=== PATIENT | female | born 1960 | race Caucasian/White ===

== ENCOUNTER 2018-11-28 16:30 | Emergency (ER) | payer OTHER ==
[2018-11-28] MEDS ORDERED: MORPHINE 4 MG/ML SYR ONE (18:27)
[2018-11-28] MEDS ORDERED: ONDANSETRON 4 MG/2 ML VIAL ONE (18:28)
[2018-11-28] MEDS ORDERED: NA CHLORIDE 0.9% 1,000 ML ONE (18:28)
[2018-11-28 18:33] LABS: Absolute Lymphocytes (CBC) 1.9 K/uL (0.7-4.9); Basophils % 1.1 % (0-1.3); Hematocrit 37.4 % (36.0-45.0); Lymphocytes % 27.1 % (15.3-44.8); RBC Red Blood Cell Count 4.26 M/uL (3.86-4.86)
[2018-11-28 18:56] LABS: Bilirubin Direct 0.1 mg/dL (0-0.2); Bilirubin Total 0.2 mg/dL (0.2-1.0); Potassium 4.1 mmol/L (3.5-5.1); Protein, Total 7.6 g/dL (6.4-8.2)
--- NOTE | 2018-11-28 19:55 | RAD REPORT ---
EXAM DESCRIPTION: CT - Abdomen Pelvis W Contrast - 11/28/2018 7:33 pm CLINICAL HISTORY: Abdominal pain COMPARISON: none. TECHNIQUE: Computed axial tomography of the abdomen pelvis was obtained. 100 cc Isovue-300 was admin istered intravenously. Oral contrast was not requested which limits evaluation of bowel. All CT scans are performed using dose optimization technique as appropriate and may include automated exposure control or mA/KV adjustment according to patient size. FINDINGS: Fatty liver The Spleen, pancreas, and adrenals appear unremarkable. Extrarenal pelves are present. Mild right devon al cortical thinning may be secondary to prior inflammation There is no evidence of diverticulitis. Small umbilical hernia. Hysterectomy The wall of the distal stomach is thickened IMPRESSION: Thickening of the wall of the distal stomach may be secondary to incomplete distention, inflammation or mass.
[2018-11-28 20:25] LABS: Urine Blood NEGATIVE (NEG); Urine Glucose NEGATIVE (NEG); Urine Protein NEGATIVE (NEG); Urine pH 5.5 (5.0-7.0)
--- NOTE | 2018-11-28 20:36 | ER ---
Nurse's Notes [facility] Name: Amy Padilla Age: 58 yrs Sex: Female : 1960 Arrival Date: 11/28/2018 Time: 16:31 Bed 18 Private MD: Diagnosis: Unspecified abdominal pain Presentation: 11/28 17:26 Presenting complaint: Patient states: LUQ abdominal pain, nausea, weakness, dizziness aj1 and shortness of breath for the past week. Denies fever. Denies V/D. Transition of care: patient was not received from another setting of care. Onset of symptoms was 2018. Risk Assessment: Do you want to hurt yourself or someone else? Patient reports no desire to harm self or others. Initial Sepsis Screen: Does the patient meet any 2 criteria? No. Patient's initial sepsis screen is negative. Does the patient have a suspected source of infection? No. Patient's initial sepsis screen is negative. Care prior to arrival: None. 17:26 Method Of Arrival: Ambulatory aj1 17:26 Acuity: KANDIS 3 aj1 Triage Assessment: 17:31 General: Appears in no apparent distress. comfortable, Behavior is calm, cooperative, aj1 appropriate for age. Pain: Complains of pain in left upper quadrant Pain currently is 10 out of 10 on a pain scale. Neuro: Level of Consciousness is awake, alert, obeys commands. Cardiovascular: Patient's skin is warm and dry. Respiratory: Airway is patent Respiratory effort is even, unlabored, Respiratory pattern is regular, symmetrical. GI: Reports upper abdominal pain. Historical: - Allergies: 17:31 Neurontin; aj1 17:31 Mobic; aj1 17:31 Sulfa (Sulfonamide Antibiotics); aj1 17:31 subha; aj1 17:31 sea food; aj1 17:31 Flonase; aj1 - Home Meds: 17:31 levothyroxine oral [Active]; armodafinil oral oral [Active]; Prozac Oral [Active]; aj1 Lunesta oral oral [Active]; - PMHx: 17:31 Hypothyroidism; Fibromyalgia; Anxiety; Depression; aj1 - PSHx: 17:31 Appendectomy; Tonsillectomy; Hysterectomy; carpal tunnel; laproscopic adhesion surgery; aj1 Disc surgery; - Immunization history:: Flu vaccine is not up to date. - Social history:: Smoking status: Patient/guardian denies using tobacco. - Ebola Screening: : Patient denies travel to an Ebola-affected area in the 21 days before illness onset. Screenin:41 Abuse screen: Denies threats or abuse. Denies injuries from another. Nutritional bp screening: No deficits noted. Tuberculosis screening: No symptoms or risk factors identified. Fall Risk None identified. Assessment: 17:40 General: Appears in no apparent distress. comfortable, Behavior is cooperative, bp appropriate for age, anxious. Pain: Complains of pain in left upper quadrant. Neuro: No deficits noted. Cardiovascular: No deficits noted. Respiratory: No deficits noted. GI: Bowel sounds present X 4 quads. Abd is soft X 4 quads. : No signs and/or symptoms were reported regarding the genitourinary system. EENT: No deficits noted. Derm: No deficits noted. Musculoskeletal: No deficits noted. 19:15 Reassessment: Patient appears in no apparent distress at this time. Patient and/or cc3 family updated on plan of care and expected duration. Pain level reassessed. Patient is alert, oriented x 3, equal unlabored respirations, skin warm/dry/pink. Received this female patient from morning shift RN Mukund as a case of abdominal pain, still for CT scan abdomen as endorsed. With IV cannula gauge 20 at the left ACV with ongoing IVF bolus of NS infusing well. Patient states feeling better. Patient states symptoms have improved. General: Appears in no apparent distress. comfortable, Behavior is calm, cooperative, appropriate for age. Pain: Complains of pain in left upper quadrant Pain currently is 8 out of 10 on a pain scale. Quality of pain is described as aching. Neuro: Level of Consciousness is awake, alert, obeys commands, Oriented to person, place, time, situation, Appropriate for age. Cardiovascular: Denies chest pain, Heart tones S1 S2 present Capillary refill < 3 seconds in bilateral fingers Patient's skin is warm and dry. Respiratory: Airway is patent Respiratory effort is even, unlabored, Respiratory pattern is regular, symmetrical. GI: Bowel sounds present X 4 quads. Abd is soft X 4 quads Abdomen is tender to palpation in left upper quadrant. : No signs and/or symptoms were reported regarding the genitourinary system. EENT: No signs and/or symptoms were reported regarding the EENT system. Derm: Skin is intact, is healthy with good turgor, Skin is pink, warm \T\ dry. normal. Musculoskeletal: Circulation, motion, and sensation intact. Range of motion: intact in all extremities. 19:30 Reassessment: Patient taken by certification technician to their department by wheelchair. cc3 19:48 Reassessment: Patient came back from CT scan department, awaiting result. cc3 20:12 Reassessment: Patient appears in no apparent distress at this time. Patient and/or cc3 family updated on plan of care and expected duration. Pain level reassessed. Patient is alert, oriented x 3, equal unlabored respirations, skin warm/dry/pink. 21:00 Reassessment: Patient appears in no apparent distress at this time. Patient and/or cc3 family updated on plan of care and expected duration. Pain level reassessed. Patient is alert, oriented x 3, equal unlabored respirations, skin warm/dry/pink. LUDA Mccormick discharged the patient the home with prescription given. IV cannula removed and patient left ER vitally stable and ambulatory with her son. No valuables left in the patient's room. Patient denies pain at this time. Patient states feeling better. Patient states symptoms have improved. Vital Signs: 17:31 BP 160 / 84; Pulse 74; Resp 18; Temp 97.2; Pulse Ox 98% on R/A; Weight 74.39 kg (R); aj1 Height 5 ft. 3 in. (160.02 cm) (R); Pain 10/10; 18:48 BP 155 / 114; Pulse 71; Resp 16; Pulse Ox 98% ; bp 19:15 BP 140 / 65; Pulse 73; Resp 17 S; Temp 98.1(O); Pulse Ox 99% on R/A; Pain 8/10; cc3 20:38 BP 150 / 76; Pulse 65; Resp 18 S; Pulse Ox 98% on R/A; cc3 17:31 Body Mass Index 29.05 (74.39 kg, 160.02 cm) [facility] ED Course: 16:31 Patient arrived in ED. wh 16:55 Patient's name was called from ER lobby. No response. aj1 17:27 Triage completed. aj1 17:31 Arm band placed on Patient placed in an exam room. aj1 17:35 Rebel Mccormick NP is PHCP. pm1 17:35 Jorge Causey MD is Attending Physician. pm1 17:40 Mukund Green, ELTON is Primary Nurse. bp 17:41 Patient has correct armband on for positive identification. Bed in low position. Call bp light in reach. Side rails up X2. 18:15 Inserted saline lock: 20 gauge in left antecubital area, using aseptic technique. bp 18:17 Radiology exam delayed due to lab results not completed at this time. (BUN/Creatinine). nj 18:18 Urine collected: clean catch specimen, clear. tm3 19:33 CT completed. Patient tolerated procedure well. Patient moved to CT. Patient moved back nh from CT. 19:34 CT Abd/Pelvis - IV Contrast Only In Process Unspecified. EDMS 21:00 No provider procedures requiring assistance completed. IV discontinued, intact, cc3 bleeding controlled, No redness/swelling at site. Pressure dressing applied. Administered Medications: 18:15 Drug: morphine 4 mg Route: IVP; Site: left antecubital; bp 19:20 Follow up: Response: No adverse reaction; Pain is decreased; RASS: Alert and Calm (0) cc3 18:15 Drug: Zofran 4 mg Route: IVP; Site: left antecubital; bp 19:20 Follow up: Response: No adverse reaction; Nausea is decreased cc3 18:15 Drug: NS 0.9% 1000 ml Route: IV; Rate: 1000 ml; Site: left antecubital; bp 19:25 Follow up: Response: No adverse reaction; IV Status: Completed infusion; IV Intake: cc3 1000ml 20:40 Drug: GI Cocktail without - (Maalox Suspension 30 ml, Lidocaine Liquid 2 % 15 cc3 ml) Route: PO; 21:00 Follow up: Response: No adverse reaction; Pain is decreased cc3 Intake: 19:25 IV: 1000ml; Total: 1000ml. cc3 Outcome: 20:34 Discharge ordered by . pm1 21:00 Discharged to home ambulatory, with family. cc3 21:00 Condition: stable 21:00 Discharge instructions given to patient, family, Instructed on discharge instructions, follow up and referral plans. medication usage, Demonstrated understanding of instructions, follow-up care, medications, Prescriptions given X 1. 21:08 Patient left the ED. cc3 Signatures: Dispatcher [employer] Fallon Cummins RN RN aj1 Daquan, Jeff tm3 Rebel Mccormick, MANAGER CARDIAC CATH MANAGER CARDIAC CATH pm1 Armani Baez Winsy wh Peltier, Brian, RN RN bp Kari Irizarry cc3
--- NOTE | 2018-11-28 20:36 | EDPHYS ---
Physician Documentation [facility] Name: Amy Padilla Age: 58 yrs Sex: Female : 1960 Arrival Date: 11/28/2018 Time: 16:31 Bed 18 Private MD: ED Physician Jorge Causey HPI: 11/28 19:12 This 58 yrs old Female presents to ER via Ambulatory with complaints of pm1 Abdominal Pain. 19:12 The patient presents with abdominal pain in the left upper quadrant, abdominal pm1 distention that is diffuse. Onset: The symptoms/episode began/occurred ongoing for multiple months. The symptoms do not radiate. Associated signs and symptoms: Pertinent positives: burning acid taste in throat with eating food. Patient reports pain is worse with eating for the past multiple months. Onset after losing prescription for Dexilant related to insurance denial for PPI, Pertinent negatives: nausea, vomiting, and diarrhea. The symptoms are described as burning. Modifying factors: The symptoms are alleviated by nothing, the symptoms are aggravated by food. Severity of pain: in the emergency department the pain is actually worse. The patient has experienced similar episodes in the past, chronically. The patient has been recently seen by a physician: Dr. Hightower who recommended colonoscopy. Has not done it because she wanted a EGD. Historical: - Allergies: 17:31 Neurontin; aj1 17:31 Mobic; aj1 17:31 Sulfa (Sulfonamide Antibiotics); aj1 17:31 subha; aj1 17:31 sea food; aj1 17:31 Flonase; aj1 - Home Meds: 17:31 levothyroxine oral [Active]; armodafinil oral oral [Active]; Prozac Oral [Active]; aj1 Lunesta oral oral [Active]; - PMHx: 17:31 Hypothyroidism; Fibromyalgia; Anxiety; Depression; aj1 - PSHx: 17:31 Appendectomy; Tonsillectomy; Hysterectomy; carpal tunnel; laproscopic adhesion surgery; aj1 Disc surgery; - Immunization history:: Flu vaccine is not up to date. - Social history:: Smoking status: Patient/guardian denies using tobacco. - Ebola Screening: : Patient denies travel to an Ebola-affected area in the 21 days before illness onset. ROS: 19:12 Constitutional: Negative for fever, chills, and weight loss, Eyes: Negative for injury, pm1 pain, redness, and discharge, ENT: Negative for injury, pain, and discharge, Neck: Negative for injury, pain, and swelling, Cardiovascular: Negative for chest pain, palpitations, and edema, Respiratory: Negative for shortness of breath, cough, wheezing, and pleuritic chest pain. 19:12 Back: Negative for injury and pain, : Negative for injury, bleeding, discharge, and swelling, MS/Extremity: Negative for injury and deformity, Skin: Negative for injury, rash, and discoloration, Neuro: Negative for headache, weakness, numbness, tingling, and seizure. 19:12 Abdomen/GI: Positive for abdominal pain, Negative for nausea, vomiting, and diarrhea. Exam: 19:12 Constitutional: This is a well developed, well nourished patient who is awake, alert, pm1 and in no acute distress. Head/Face: Normocephalic, atraumatic. Eyes: Pupils equal round and reactive to light, extra-ocular motions intact. Lids and lashes normal. Conjunctiva and sclera are non-icteric and not injected. Cornea within normal limits. Periorbital areas with no swelling, redness, or edema. ENT: Nares patent. No nasal discharge, no septal abnormalities noted. Tympanic membranes are normal and external auditory canals are clear. Oropharynx with no redness, swelling, or masses, exudates, or evidence of obstruction, uvula midline. Mucous membranes moist. Neck: Trachea midline, no thyromegaly or masses palpated, and no cervical lymphadenopathy. Supple, full range of motion without nuchal rigidity, or vertebral point tenderness. No Meningismus. Chest/axilla: Normal chest wall appearance and motion. Nontender with no deformity. No lesions are appreciated. Cardiovascular: Regular rate and rhythm with a normal S1 and S2. No gallops, murmurs, or rubs. Normal PMI, no JVD. No pulse deficits. Respiratory: Lungs have equal breath sounds bilaterally, clear to auscultation and percussion. No rales, rhonchi or wheezes noted. No increased work of breathing, no retractions or nasal flaring. 19:12 Back: No spinal tenderness. No costovertebral tenderness. Full range of motion. Skin: Warm, dry with normal turgor. Normal color with no rashes, no lesions, and no evidence of cellulitis. MS/ Extremity: Pulses equal, no cyanosis. Neurovascular intact. Full, normal range of motion. 19:12 Abdomen/GI: Inspection: abdomen appears normal, Bowel sounds: normal, Palpation: abdomen is soft and non-tender, in all quadrants, mass, is not appreciated, rebound tenderness, is not appreciated. 19:12 Neuro: Orientation: is normal, Motor: is normal, moves all fours. Vital Signs: 17:31 BP 160 / 84; Pulse 74; Resp 18; Temp 97.2; Pulse Ox 98% on R/A; Weight 74.39 kg (R); aj1 Height 5 ft. 3 in. (160.02 cm) (R); Pain 10/10; 18:48 BP 155 / 114; Pulse 71; Resp 16; Pulse Ox 98% ; bp 19:15 BP 140 / 65; Pulse 73; Resp 17 S; Temp 98.1(O); Pulse Ox 99% on R/A; Pain 8/10; cc3 20:38 BP 150 / 76; Pulse 65; Resp 18 S; Pulse Ox 98% on R/A; cc3 17:31 Body Mass Index 29.05 (74.39 kg, 160.02 cm) aj1 MDM: 17:46 Patient medically screened. pm1 20:34 Data reviewed: vital signs. Data interpreted: Pulse oximetry: on room air is 99 %. pm1 Interpretation: normal. Counseling: I had a detailed discussion with the patient and/or guardian regarding: the historical points, exam findings, and any diagnostic results supporting the discharge/admit diagnosis, lab results, radiology results, the need for outpatient follow up, to return to the emergency department if symptoms worsen or persist or if there are any questions or concerns that arise at home. 11/28 18:06 Order name: Basic Metabolic Panel; Complete Time: 19:16 pm1 11/28 18:06 Order name: CBC with Diff; Complete Time: 18:53 pm1 11/28 18:06 Order name: Creatinine for Radiology; Complete Time: 19:16 pm1 11/28 18:06 Order name: Hepatic Function; Complete Time: 19:16 pm1 11/28 18:06 Order name: Lipase; Complete Time: 19:16 pm1 11/28 18:25 Order name: Urine Dipstick--Ancillary (enter results); Complete Time: 20:33 gm 11/28 18:06 Order name: IV Saline Lock; Complete Time: 18:45 pm1 11/28 18:06 Order name: Labs collected and sent; Complete Time: 18:45 pm1 11/28 18:06 Order name: CT Abd/Pelvis - IV Contrast Only; Complete Time: 20:33 pm1 11/28 18:06 Order name: Urine Dipstick-Ancillary (obtain specimen); Complete Time: 18:13 pm1 Administered Medications: 18:15 Drug: morphine 4 mg Route: IVP; Site: left antecubital; bp 19:20 Follow up: Response: No adverse reaction; Pain is decreased; RASS: Alert and Calm (0) cc3 18:15 Drug: Zofran 4 mg Route: IVP; Site: left antecubital; bp 19:20 Follow up: Response: No adverse reaction; Nausea is decreased cc3 18:15 Drug: NS 0.9% 1000 ml Route: IV; Rate: 1000 ml; Site: left antecubital; bp 19:25 Follow up: Response: No adverse reaction; IV Status: Completed infusion; IV Intake: cc3 1000ml 20:40 Drug: GI Cocktail without - (Maalox Suspension 30 ml, Lidocaine Liquid 2 % 15 cc3 ml) Route: PO; 21:00 Follow up: Response: No adverse reaction; Pain is decreased cc3 Disposition: 11/29 07:16 Co-signature as Attending Physician, Jorge Causey MD. rn Disposition: 11/28/18 20:34 Discharged to Home. Impression: Unspecified abdominal pain. - Condition is Stable. - Discharge Instructions: Abdominal Pain, Adult, Gastritis, Adult. - Prescriptions for Pepcid 20 mg Oral Tablet - take 1 tablet by ORAL route every 12 hours for 10 days; 20 tablet. - Medication Reconciliation Form, Thank You Letter, Antibiotic Education, Prescription Opioid Use form. - Follow up: Emergency Department; When: As needed; Reason: Worsening of condition. Follow up: Private Physician; When: 2 - 3 days; Reason: Recheck today's complaints, Continuance of care, Re-evaluation by your physician. - Problem is new. - Symptoms have improved. Signatures: Dispatcher MedClarion Psychiatric CenterFallon Cesar RN RN aj1 Jorge Causey MD MD rn Marinas, Patrick, WARP PICKER WARP PICKER pm1 Mukund Green, RN RN Kari Garcia cc3 Corrections: (The following items were deleted from the chart) 11/28 21:08 20:34 11/28/2018 20:34 Discharged to Home. Impression: Unspecified abdominal pain. cc3 Condition is Stable. Forms are Medication Reconciliation Form, Thank You Letter, Antibiotic Education, Prescription Opioid Use. Follow up: Emergency Department; When: As needed; Reason: Worsening of condition. Follow up: Private Physician; When: 2 - 3 days; Reason: Recheck today's complaints, Continuance of care, Re-evaluation by your physician. Problem is new. Symptoms have improved. pm1
[2018-11-28] MEDS ORDERED: MAGNE/ALUM HYDROXD 30 ML UCUP ONE (20:43)
[2018-11-28] MEDS ORDERED: LIDOCAINE VISCOUS 2% SOLN 15 ML UDC ONE (20:43)
[2018-11-28 22:12] VITALS: TEMP 98.1
[2018-11-28 22:13] VITALS: BP 150/76; O2SAT 98
== END 2018-11-28 21:08 | disposition home or self-care (01) ==
LOC: ER 16:30
DX: R10.12 Left upper quadrant pain (principal); E03.9 Hypothyroidism, unspecified; F41.9 Anxiety disorder, unspecified; F32.9 Major depressive disorder, single episode, unspecified
CPT/HCPCS: 85025; 80048; 36415; 80076; 81003; 83690; 74177; Q9967; J7030; J2405; 96361; 96374; 96375; 99284

== ENCOUNTER 2019-10-05 17:09 | Emergency (ER) | payer OTHER ==
--- OUTSIDE RECORDS SUMMARY | 2019-10-05 17:11 | XMS REPORT | Continuity of Care Document ---
:1960 Author Organization [facility] t Address [address] [place] [address] Care Team Providers Name Role Phone Tech, Sleep Lab Attending Clinician Unavailable Only, Test Attending Clinician Unavailable Problems Condition Condition Condition Status Onset Resolution Last Treating Co mments Source Name Details Category Date Date Treatment Clinician Date Sciatica Sciatica Problem [facility] Sciatica, Sciatica, Problem Active [facility] right [facility] side [facility] Right hip Right hip Diagnosis Active [facility] pain pain [facility] Left hip Left hip Diagnosis Active [facility] Allergies, Adverse Reactions, Alerts Allergy Allergy Status Severity Reaction(s) Onset Inactive Treating Comm ents Source Name Type Date Date Clinician Lyrica Adverse Active Info Not [facility] Reaction Available [facility] Gabapent Adverse Active Info Not [facility] Reaction Available [facility] Medications Ordered Filled Start Stop Current Ordering Indication Dosage Frequency Signature Comments Components Source Medication Medication Date Date Medication? Clinician (SIG) Name Name Livalo Livalo Yes Ryan not [facility] defined [facility] Armodafinil Armodafinil Yes Ryan (Schedule [facility] IV Drug) [facility] Fluoxetine Fluoxetine Yes Ryan not [facility] HCl HCl [facility] defined [facility] Eszopiclone Eszopiclone Yes Ryan (Schedule [facility]) [facility] Levothyroxi Levothyroxi Yes Ryan not [facility] ne Sodium ne Sodium [facility] defined [facility] Dexilant Dexilant Yes Ryan not [facility] defined [facility] Procedures This patient has no known procedures. Encounters Start End Encounter Admission Attending Care Care Encounter Source Date/Time Date/Time Type Type Clinicians Facility Department ID 2019-09-13 2019-09-13 Retail Warehouse Associate Tech, [facility] [id number] 13:40:37 13:55:37 Visit Sleep Lab [place] [id number] [place] [id number] [place] [phone] [id number] 2019-09-11 2019-09-11 Laboratory Only, [facility] [id number] 13:42:02 13:53:01 Only Test [place] [id number] [place] [id number] [place] [id number] 2018-06-01 2018-06-01 [facility] [id number] [facility] 14:30:00 14:30:00 t [facility] Results This patient has no known results.
--- OUTSIDE RECORDS SUMMARY | 2019-10-05 17:11 | XMS REPORT | Summary of Care ---
:1960 Author Organization [facility] [[email or web address]] - Health Address [address] [place] [address] Care Team Providers Name Role Phone Alirio Gibson Primary Care Provider Encounter Details Date Type Department Care Team Description 09/11/2019 Orders Only [facility] [[email or web address]] Doctor Unassigned, No [address] [facility] [place] [address] [address] [place] [address] Allergies Active Allergy Reactions Severity Noted Date Comments Fluticasone Propionate Palpitations 05/16/2018 Lemon Anaphylaxis 08/26/2014 Closes throat Meloxicam Shortness of Breath 03/01/2014 Gabapentin Shortness of Breath 08/23/2012 Seafood/Fish Other - See comments 10/24/2012 Rash, t hroat closes Iodine And Iodide Other - See comments 10/24/2012 Ra sh, throat Containing Products closes Sulfamethoxazole Anaphylaxis 04/30/2013 Bactrim documented as of this encounter (statuses as of 09/11/2019) Medications Medication Sig Dispensed Refills Start Date End Date Status Armodafinil (NUVIGIL) Take 0.5 tablets 0 Active 150 mg Tab by mouth every morning. eszopiclone 3 mg tablet Take 3 mg by 2 05/09/2018 Active mouth at bedtime. levothyroxine 75 mcg Take 1 tablet by 30 tablet 5 09/13/2018 Active tabletIndications: mouth every Acquired hypothyroidism morning. pantoprazole 40 mg EC Take 40 mg by 0 01/17/2019 Active tablet mouth every morning. FLUoxetine 20 mg Take 20 mg by 0 01/31/2019 Active capsule mouth daily. FLUoxetine (PROZAC) 40 Take 40 mg by 0 Active mg capsule mouth daily. Crutch MiscIndications: Use as directed 1 Each 0 02/12/2019 Active Acute left ankle pain documented as of this encounter (statuses as of 09/11/2019) Active Problems Problem Noted Date Abnormal SPEP 2018 Overview: Possible hypogammaglobulinemia, further lab tests ordered. GERD (gastroesophageal reflux disease) 05/17/2018 Sigmoid diverticulosis 02/15/2017 Prediabetes 12/01/2016 Hypercholesterolemia 12/01/2016 Fatty liver 11/25/2016 Microscopic hematuria 11/24/2016 Trigger finger of right hand 09/03/2014 Ganglion cyst 09/03/2014 Overweight 05/06/2013 Overview: ICD10 Diagnosis Term Mail Carrier And Clerk Utility Cervical spondylosis without myelopathy 09/06/2012 Other seborrheic keratosis 05/08/2012 Fibromyalgia syndrome Carpal tunnel syndrome Sleep apnea Endometriosis Depression Anxiety Chronic fatigue Hypothyroidism Peripheral neuropathy Trochanteric bursitis documented as of this encounter (statuses as of 09/11/2019) Social History Tobacco Use Types Packs/Day Years Used Date Former Smoker Cigarettes 1 36 Quit: 02/03/20 17 Smokeless Tobacco: Never Used Comments: vaping Alcohol Use Drinks/Week oz/Week Comments No Sex Assigned at Date Recorded Not on file Job Start Date Occupation Industry Not on file Not on file Not on file Travel History Travel Start Travel End No recent travel history available. documented as of this encounter Last Filed Vital Signs Not on filedocumented in this encounter Plan of Treatment Date Type Specialty Care Team Description 09/11/2019 Laboratory Only Clinical Medical Luiz Le MD [address] [place] [address] [address] [place] [address] Arrived Laboratory Only, Adc Test 09/13/2019 Ekg Manager Visit Sleep Disorder Dino Ng, Diagnostic [address] [place] [address] Health Maintenance Due Date Last Done Comments DTaP,Tdap,and Td Vaccines (1 - 1973 Tdap) Depression Screening 1974 COLONOSCOPY 2012 Zoster Recombinant Vaccine 2012 (SHINGRIX) (1 of 2) LUNG CANCER SCREEN: Recommended 2017 for age 55-80 with 30 + pack year history Breast Cancer Screening 12/02/2017 12/02/2016 (MAMMOGRAM) INFLUENZA VACCINE (#1) 2019 HEPATITIS C (HCV) SCREEN Completed 05/01/2007 PNEUMOCOCCAL 0-64 YEARS COMBINED Aged Out No longer eligible based on SERIES patient's age to complete this topic documented as of this encounter Procedures Procedure Name Priority Date/Time Associated Diagnosis Comme nts ASSIGNMENT OF BENEFITS Routine 09/11/2019 1:41 PM CDT documented in this encounter Results Not on filedocumented in this encounter Insurance Payer Benefit Plan / Subscriber ID Effective Dates Phone Addre ss Type Group [facility] xxxxxxxxx 2013-Present Medicaid COMM PLAN - PLUS MANAGED MEDICAID documented as of this encounter Advance Directives Type Date Recorded Patient Apron Operator Explanati on Advance Directives and Living 11/13/2012 8:09 AM Will Power of Prn Occupational Therapist 11/13/2012 8:09 AM
--- OUTSIDE RECORDS SUMMARY | 2019-10-05 17:12 | XMS REPORT | Summary of Care ---
:1960 Author Organization [facility] - [facility] Address [address] [place] [address] Care Team Providers Name Role Phone Alirio Gibson Primary Care Provider Reason for Visit Reason Comments LAB WORK Encounter Details Date Type Department Care Team Description 09/11/2019 Laboratory Only [facility] Luiz Le MD [address] [facility] [address] [place] [address] Unspecified Phlebotomy Only, Adc Test examination (Primary Lab-[place] Dx) [address] [place] [address] Allergies Active Allergy Reactions Severity Noted Date [...] 09/03/2014 Overweight 05/06/2013 Overview: ICD10 Diagnosis Term Tubing Tester Utility Cervical spondylosis without myelopathy 09/06/2012 Other [...] Treatment Date Type Specialty Care Team Description 09/13/2019 Computer Peripheral Equipment Operator Visit Sleep Disorder Dino Ng, Diagnostic [address] [address] 15 [phone] Name Type Priority Associated Diagnoses Order S chedule COVID-19 (PCR MOLECULAR LAB Routine Unspecified exami nation Expected: 09/11/2019, TESTING) Expires: 2020 Health Maintenance Due Date Last Done Comments [...] this topic documented as of this encounter Results Not on filedocumented in this encounter Visit Diagnoses Diagnosis Unspecified examination - Primary documented in this encounter Insurance Payer Benefit Plan / Subscriber ID Effective Dates Phone Addre ss Type Group [facility] STAR xxxxxxxxx 2013-Present Medicaid COMM PLAN - PLUS MANAGED MEDICAID documented as of this encounter Advance Directives Type Date Recorded Patient Basket Hand Braider Explanati on Advance Directives and Living 11/13/2012 8:09 AM Will Power of Mechanical Ordnance Assembler 11/13/2012 8:09 AM
--- OUTSIDE RECORDS SUMMARY | 2019-10-05 17:12 | XMS REPORT | Summary of Care ---
:1960 Author Organization [facility] - [facility] Address [address] [place] [address] Care Team Providers Name Role Phone Alirio Gibson Primary Care Provider Reason for Visit Reason Comments LAB WORK Encounter Details Date Type Department Care Team Description 09/11/2019 Laboratory Only [facility] Luiz Le MD [address] [facility] [address] [place] [address] Unspecified Phlebotomy Only, Adc Test examination (Primary Lab-[place] Dx) [address] [place] [address] Allergies Active Allergy Reactions Severity [...] 09/03/2014 Overweight 05/06/2013 Overview: ICD10 Diagnosis Term Wafer Mounter Utility Cervical spondylosis without myelopathy 09/06/2012 Other [...] Date Type Specialty Care Team Description 09/13/2019 Welder Railcar Mechanic Visit Sleep Disorder Dino Ng, Diagnostic [address] [address] 15 [phone] Name Type Priority Associated Diagnoses Date/Ti me COVID-19 (PCR MOLECULAR LAB Routine Unspecified exami nation 09/11/2019 1:48 PM CDT TESTING) Name Type Priority Associated Diagnoses Order S [...] examination - Primary documented in this encounter Additional Health Concerns Infection Onset Date Last Indicated Resolved Time COVID-19 Rule Out 09/11/2019 09/11/2019 documented as of this encounter Insurance Payer Benefit Plan / Subscriber ID Effective Dates Phone Addre ss Type Group [facility] xxxxxxxxx 2013-Present Medicaid COMM PLAN - PLUS MANAGED MEDICAID documented as of this encounter Advance Directives Type Date Recorded Patient Camp Recreation Specialist Explanati on Advance Directives and Living 11/13/2012 8:09 AM Will Power of Hog Driver 11/13/2012 8:09 AM
--- OUTSIDE RECORDS SUMMARY | 2019-10-05 17:13 | XMS REPORT | Summary of Care ---
:1960 Author Organization [facility] - [facility] Address [address] [place] [address] Care Team Providers Name Role Phone Alirio Gibson Primary Care Provider Reason for Visit Reason Comments LAB WORK Encounter Details Date Type Department Care Team Description 09/11/2019 Laboratory Only [facility] Luiz Le MD [address] [facility] [address] [place] [address] Unspecified Phlebotomy Only, Adc Test examination (Primary Lab-[place] Dx) [address] [place] [address] Allergies Active Allergy Reactions Severity [...] 09/03/2014 Overweight 05/06/2013 Overview: ICD10 Diagnosis Term Senior Php Software Developer Utility Cervical spondylosis without myelopathy 09/06/2012 Other [...] Date Type Specialty Care Team Description 09/13/2019 Loss Prevention Specialist Visit Sleep Disorder Dino Ng, Diagnostic [address] [address] 15 [phone] Name Type Priority Associated Diagnoses Date/Ti me [...] Effective Dates Phone Addre ss Type Group [facility] xxxxxxxxx 2013-Present Medicaid COMM PLAN - PLUS MANAGED MEDICAID documented as of this encounter Advance Directives Type Date Recorded Patient Vegetable Harvest Worker Explanati on Advance Directives and Living 11/13/2012 8:09 AM Will Power of Customer Support Representative 11/13/2012 8:09 AM
--- OUTSIDE RECORDS SUMMARY | 2019-10-05 17:13 | XMS REPORT | Summary of Care ---
:1960 Author Organization [facility] Address [address] [place] [address] Care Team Providers Name Role Phone Alirio Gibson Primary Care Provider Reason for Visit Reason Comments Obstructive Sleep Apnea (Routine) Status Reason Specialty Diagnoses / Referred By Referred To Procedures Contact Contact Closed IM-INTERNAL Diagnoses Obstructive sleep apnea (adult) (pediatric) Snoring HST Covid testing on 09/11/2019 Mally Gibson [facility] MEDICINE / Sleep Procedures [place] SLEEP STUDY, UNATTENDED, SIMUL RECORD HR/O2 SAT/RESP FLOW/RESP EFF SLEEP ASSESSMENT Juanis Johnson [facility] Disorder Diagnostic [address] [place] [address] [place] [phone] Phone: Encounter Details Date Type Department Care Team Description 09/13/2019 Business Account Manager Visit [facility] Sleep Dino Ng bstructive sleep Disorder Center- MD Gwendolyn apnea (adult) [address] (pediatric) [address] [facility] [address] [place] [id number] Allergies Active Allergy Reactions Severity Noted Date Comments Fluticasone Propionate Palpitations 05/16/2018 Lemon Anaphylaxis 08/26/2014 Closes throat Meloxicam Shortness of Breath 03/01/2014 Gabapentin Shortness of Breath 08/23/2012 Seafood/Fish Other - See comments 10/24/2012 Rash, t hroat closes Iodine And Iodide Other - See comments 10/24/2012 Ra sh, throat Containing Products closes Sulfamethoxazole Anaphylaxis 04/30/2013 Bactrim documented as of this encounter (statuses as of 09/17/2019) Medications Medication Sig Dispensed Refills Start Date [...] as of this encounter (statuses as of 09/17/2019) Active Problems Problem Noted Date Abnormal SPEP 2018 Overview: Possible hypogammaglobulinemia, further lab tests ordered. GERD (gastroesophageal reflux disease) 05/17/2018 Sigmoid diverticulosis 02/15/2017 Prediabetes 12/01/2016 Hypercholesterolemia 12/01/2016 Fatty liver 11/25/2016 Microscopic hematuria 11/24/2016 Trigger finger of right hand 09/03/2014 Ganglion cyst 09/03/2014 Overweight 05/06/2013 Overview: ICD10 Diagnosis Term Marketing Producer Utility Cervical spondylosis without myelopathy 09/06/2012 Other seborrheic keratosis 05/08/2012 Fibromyalgia syndrome Carpal tunnel syndrome Sleep apnea Endometriosis Depression Anxiety Chronic fatigue Hypothyroidism Peripheral neuropathy Trochanteric bursitis documented as of this encounter (statuses as of 09/17/2019) Social History Tobacco Use Types Packs/Day Years Used Date Former Smoker Cigarettes 1 36 Quit: 02/03/20 17 Smokeless Tobacco: Never Used Comments: vaping Alcohol Use Drinks/Week oz/Week Comments No Sex Assigned at Date Recorded Not on file Job Start Date Occupation Industry Not on file Not on file Not on file Travel History Travel Start Travel End No recent travel history available. COVID-19 Exposure Response Date Recorded In the last month, have you been in contact with No / Unsure 09/17/2019 12:48 PM CDT someone who was confirmed or suspected to have Coronavirus / COVID-19? documented as of this encounter Last Filed Vital Signs Not on filedocumented in this encounter Plan of Treatment Date Type Specialty Care Team Description 09/24/2019 Appointment Radiology Radiology [address] [place] [address] 09/24/2019 Appointment Radiology Radiology [address] [place] [address] Health Maintenance Due Date Last Done Comments [...] filedocumented in this encounter Visit Diagnoses Diagnosis Obstructive sleep apnea (adult) (pediatr ic) documented in this encounter Insurance Payer Benefit Plan / Subscriber ID Effective Dates Phone Addre ss Type Group [facility] STAR xxxxxxxxx 2013-Present Medicaid COMM PLAN - PLUS MANAGED MEDICAID documented as of this encounter Advance Directives Type Date Recorded Patient Reconditioner Explanati on Advance Directives and Living 11/13/2012 8:09 AM Will Power of Casting Associate 11/13/2012 8:09 AM
--- OUTSIDE RECORDS SUMMARY | 2019-10-05 17:13 | XMS REPORT | Summary of Care ---
:1960 Author Organization [facility] Address [address] [place] [address] Care Team Providers Name Role Phone Alirio Gibson Primary Care Provider Reason for Visit Reason Comments LAB WORK Encounter Details Date Type Department Care Team Description 09/11/2019 Laboratory Only [facility] Luiz Le MD [address] [facility] [address] [place] [address] Unspecified Phlebotomy Only, Adc Test examination (Primary Lab-[place] Dx) [address] [place] [address] Allergies Active Allergy Reactions Severity [...] 09/03/2014 Overweight 05/06/2013 Overview: ICD10 Diagnosis Term Resistance Welding Machine Operator Utility Cervical spondylosis without myelopathy 09/06/2012 Other [...] Date Type Specialty Care Team Description 09/13/2019 Decorator Mannequin Visit Sleep Disorder Dino Ng, Diagnostic [address] [address] [phone] Name Type Priority Associated Diagnoses Date/Ti me [...] Dates Phone Addre ss Type Group [facility] xxxxxxxxx 2013-Present Medicaid COMM PLAN - PLUS MANAGED MEDICAID documented as of this encounter Advance Directives Type Date Recorded Patient Apparel Fashion Designer Explanati on Advance Directives and Living 11/13/2012 8:09 AM Will Power of Haul Driver 11/13/2012 8:09 AM
[2019-10-05] MEDS ORDERED: HYDROCODONE/APAP 10/325 TAB ONE (18:54)
[2019-10-05] MEDS ORDERED: KETOROLAC 30 MG/ML INJ ONE (18:55)
--- NOTE | 2019-10-05 18:57 | EDPHYS ---
Physician Documentation [facility] Name: Amy Padilla Age: 59 yrs Sex: Female : 1960 Arrival Date: 10/05/2019 Time: 17:11 Bed 15 Private MD: ED Physician Kevyn Garcia HPI: 10/04 18:50 This 59 yrs old Female presents to ER via Wheelchair with complaints of kb Buttock Pain. 18:51 The patient presents with pain that is acute, with no known mechanism of injury. The kb symptoms are located in the right low back. The pain radiates to the right leg. The problem was sustained without known cause. Onset: The symptoms/episode began/occurred 2 day(s) ago. Modifying factors: The patient symptoms are alleviated by nothing, the patient symptoms are aggravated by any movement. Associated signs and symptoms: The patient has no apparent associated signs or symptoms. Severity of symptoms: At their worst the symptoms were moderate, in the emergency department the symptoms are unchanged. The patient has experienced a previous episode. The patient has not recently seen a physician. Pt reports pain to right low back/buttock that started 2 days ago. States the pain started when she got out of bed, denies injury/trauma. States it feels similar to when she had a sciatic nerve pain in the past. Historical: - Allergies: 17:52 Flonase; ca1 17:52 subha; ca1 17:52 Mobic; ca1 17:52 Neurontin; ca1 17:52 sea food; ca1 17:52 Sulfa (Sulfonamide Antibiotics); ca1 - PMHx: 17:52 Anxiety; Depression; Fibromyalgia; Hypothyroidism; ca1 - PSHx: 17:52 Appendectomy; Tonsillectomy; Hysterectomy; Carpal Tunnel Repair; laproscopic adhesion ca1 surgery; Disc surgery; - Immunization history:: Adult Immunizations up to date. - Social history:: Smoking status: Patient denies any tobacco usage or history of. ROS: 18:48 Constitutional: Negative for fever, chills, and weight loss, Cardiovascular: Negative kb for chest pain, palpitations, and edema, Respiratory: Negative for shortness of breath, cough, wheezing, and pleuritic chest pain, Abdomen/GI: Negative for abdominal pain, nausea, vomiting, diarrhea, and constipation, MS/Extremity: Negative for injury and deformity, Skin: Negative for injury, rash, and discoloration, Neuro: Negative for headache, weakness, numbness, tingling, and seizure. 18:48 Back: Positive for pain at rest, pain with movement, radiated pain, of the right low back. Exam: 18:48 Constitutional: This is a well developed, well nourished patient who is awake, alert, kb and in no acute distress. Head/Face: Normocephalic, atraumatic. Chest/axilla: Normal chest wall appearance and motion. Nontender with no deformity. No lesions are appreciated. Cardiovascular: Regular rate and rhythm with a normal S1 and S2. No gallops, murmurs, or rubs. Normal PMI, no JVD. No pulse deficits. Respiratory: Lungs have equal breath sounds bilaterally, clear to auscultation and percussion. No rales, rhonchi or wheezes noted. No increased work of breathing, no retractions or nasal flaring. Abdomen/GI: Soft, non-tender, with normal bowel sounds. No distension or tympany. No guarding or rebound. No evidence of tenderness throughout. Skin: Warm, dry with normal turgor. Normal color with no rashes, no lesions, and no evidence of cellulitis. MS/ Extremity: Pulses equal, no cyanosis. Neurovascular intact. Full, normal range of motion. Neuro: Awake and alert, GCS 15, oriented to person, place, time, and situation. Cranial nerves II-XII grossly intact. Motor strength 5/5 in all extremities. Sensory grossly intact. Cerebellar exam normal. Normal gait. 18:48 Back: pain, that is moderate, of the right low back, ROM is normal, normal spinal alignment noted. Vital Signs: 17:49 BP 113 / 67; Pulse 73; Resp 15 S; Temp 97.6(TE); Pulse Ox 97% on R/A; Weight 81.65 kg ca1 (R); Height 5 ft. 3 in. (160.02 cm) (R); 19:00 BP 148 / 63; Pulse 65; Resp 16; Pulse Ox 100% on R/A; wh 17:49 Body Mass Index 31.89 (81.65 kg, 160.02 cm) ca1 MDM: 18:21 Patient medically screened. kb 18:47 Data reviewed: vital signs, nurses notes. Data interpreted: Pulse oximetry: on room air kb is 97 %. Interpretation: normal. 18:48 Counseling: I had a detailed discussion with the patient and/or guardian regarding: the kb historical points, exam findings, and any diagnostic results supporting the discharge/admit diagnosis, the need for outpatient follow up, a family practitioner, to return to the emergency department if symptoms worsen or persist or if there are any questions or concerns that arise at home. Administered Medications: 19:00 Drug: TORadol 30 mg Route: IM; Site: right deltoid; [facility] 19:26 Follow up: Response: No adverse reaction 19:00 Drug: Parker 10 mg-325 mg 1 tabs {Note: Rass score 0.} Route: PO; [facility] 19:25 Follow up: Response: No adverse reaction 19:26 Follow up: Response: No adverse reaction; Pain is decreased; RASS: Alert and Calm (0) Disposition: 10/05/19 18:57 Discharged to Home. Impression: Sciatica, right side. - Condition is Stable. - Discharge Instructions: Sciatica, Cfzs-by-Mxfy, Back Exercises, Weyo-xy-Baed. - Prescriptions for Prednisone 20 mg Oral Tablet - take 1 tablet by ORAL route once daily for 5 days; 5 tablet. Cyclobenzaprine 10 mg Oral Tablet - take 1 tablet by ORAL route every 8 hours As needed; 30 tablet. - Medication Reconciliation Form, Thank You Letter, Antibiotic Education, Prescription Opioid Use form. - Follow up: Emergency Department; When: As needed; Reason: Worsening of condition. Follow up: Private Physician; When: 2 - 3 days; Reason: Recheck today's complaints, Continuance of care, Re-evaluation by your physician. Addendum: 10/08/2019 11:14 Co-signature as Attending Physician, Kevyn Garcia MD I agree with the assessment and k dr plan of care. Signatures: Mily Ann, CAMERON-C CAMERON-Kevyn Dc MD MD [facility] Mihai Dent, ELTON RN [id number] Eda Porras Liz Bettencourt RN RN ca1 Corrections: (The following items were deleted from the chart) 10/04 19:26 18:57 10/05/2019 18:57 Discharged to Home. Impression: Sciatica, right side. Condition wh is Stable. Forms are Medication Reconciliation Form, Thank You Letter, Antibiotic Education, Prescription Opioid Use. Follow up: Emergency Department; When: As needed; Reason: Worsening of condition. Follow up: Private Physician; When: 2 - 3 days; Reason: Recheck today's complaints, Continuance of care, Re-evaluation by your physician. kb
--- NOTE | 2019-10-05 18:57 | ER ---
Nurse's Notes [facility] Name: Amy Padilla Age: 59 yrs Sex: Female : 1960 Arrival Date: 10/05/2019 Time: 17:11 Bed 15 Private MD: Diagnosis: Sciatica, right side Presentation: 10/04 17:49 Chief complaint: Patient states: R side buttock pain down to R knee pain x 2 nights ca1 ago. Pain with movement and ambulation. Denies injury. Coronavirus screen: Client denies travel out of the [place] in the last 14 days. At this time, the client does not indicate any symptoms associated with coronavirus-19. Ebola Screen: Patient negative for fever greater than or equal to 101.5 degrees Fahrenheit, and additional compatible Ebola Virus Disease symptoms Patient denies exposure to infectious person. Patient denies travel to an Ebola-affected area in the 21 days before illness onset. No symptoms or risks identified at this time. Initial Sepsis Screen: Does the patient meet any 2 criteria? No. Patient's initial sepsis screen is negative. Does the patient have a suspected source of infection? No. Patient's initial sepsis screen is negative. Risk Assessment: Do you want to hurt yourself or someone else? Patient reports no desire to harm self or others. Onset of symptoms was October 05, 2019. 17:49 Method Of Arrival: Wheelchair ca1 17:49 Acuity: KANDIS 4 ca1 Historical: - Allergies: 17:52 Flonase; ca1 17:52 subha; ca1 17:52 Mobic; ca1 17:52 Neurontin; ca1 17:52 sea food; ca1 17:52 Sulfa (Sulfonamide Antibiotics); ca1 - PMHx: 17:52 Anxiety; Depression; Fibromyalgia; Hypothyroidism; ca1 - PSHx: 17:52 Appendectomy; Tonsillectomy; Hysterectomy; Carpal Tunnel Repair; laproscopic adhesion ca1 surgery; Disc surgery; - Immunization history:: Adult Immunizations up to date. - Social history:: Smoking status: Patient denies any tobacco usage or history of. Screenin:50 Abuse screen: Denies threats or abuse. Nutritional screening: No deficits noted. jb4 Tuberculosis screening: No symptoms or risk factors identified. Fall Risk None identified. Assessment: 18:50 General: Appears in no apparent distress. uncomfortable, Behavior is calm, cooperative, jb4 appropriate for age. Pain: Complains of pain in right gluteus lobito Pain radiates to right leg Pain currently is 8 out of 10 on a pain scale. Quality of pain is described as burning, stabbing, Pain began 2-3 days ago. Neuro: Level of Consciousness is awake, alert, obeys commands, Oriented to person, place, time, situation. Cardiovascular: Patient's skin is warm and dry. Respiratory: Airway is patent Respiratory effort is even, unlabored, Respiratory pattern is regular, symmetrical. GI: No signs and/or symptoms were reported involving the gastrointestinal system. : No signs and/or symptoms were reported regarding the genitourinary system. EENT: No signs and/or symptoms were reported regarding the EENT system. Derm: Skin is intact, Skin is pink, warm \T\ dry. Musculoskeletal: Circulation, motion, and sensation intact. Range of motion: intact in all extremities. 19:24 Reassessment: Patient appears in no apparent distress at this time. Patient and/or wh family updated on plan of care and expected duration. Pain level reassessed. Patient is alert, oriented x 3, equal unlabored respirations, skin warm/dry/pink. No adverse reaction noted to Toradol. Pt verbalized understanding of d/c and follow up instructions. Denies questions or concerns, Assisted to vehicle via wheelchair. Vital Signs: 17:49 BP 113 / 67; Pulse 73; Resp 15 S; Temp 97.6(TE); Pulse Ox 97% on R/A; Weight 81.65 kg ca1 (R); Height 5 ft. 3 in. (160.02 cm) (R); 19:00 BP 148 / 63; Pulse 65; Resp 16; Pulse Ox 100% on R/A; wh 17:49 Body Mass Index 31.89 (81.65 kg, 160.02 cm) ca1 ED Course: 17:11 Patient arrived in ED. ag5 17:51 Triage completed. ca1 17:52 Arm band placed on right wrist. ca1 18:16 Mihai Dent, ELTON is Primary Nurse. jb4 18:21 [facility]ily Ann [facility]-C [facility] kb 18:21 Kevyn Garcia MD is Attending Physician. kb 19:00 Patient has correct armband on for positive identification. Bed in low position. Call light in reach. Side rails up X 1. Pulse ox on. NIBP on. 19:25 No provider procedures requiring assistance completed. Patient did not have IV access during this emergency room visit. Administered Medications: 19:00 Drug: TORadol 30 mg Route: IM; Site: right deltoid; jb4 : Follow up: Response: No adverse reaction 19: Drug: [place] 10 mg-325 mg 1 tabs {Note: Rass score 0.} Route: PO; [facility] : Follow up: Response: No adverse reaction Follow up: Response: No adverse reaction; Pain is decreased; RASS: Alert and Calm (0) Outcome: 18:57 Discharge ordered by . 19: Discharged to home via wheelchair. 19: Condition: stable 19: Discharge instructions given to patient, Instructed on discharge instructions, follow up and referral plans. medication usage, POC Demonstrated understanding of instructions, follow-up care, medications, POC Prescriptions given X 2. 19:26 Patient left the ED. Signatures: Mily Ann, INSURANCE ADMINISTRATIVE ASSISTANT-C INSURANCE ADMINISTRATIVE ASSISTANT-Ckb Mihai Dent, RN RN jb4 Eda Porras Liz Bettencourt RN RN [facility] Winifred Brown 5 Corrections: (The following items were deleted from the chart) 19:26 19:24 Reassessment: Patient appears in no apparent distress at this time. Patient wh and/or family updated on plan of care and expected duration. Pain level reassessed. Patient is alert, oriented x 3, equal unlabored respirations, skin warm/dry/pink. No adverse reaction noted to Toradol. Pt verbalized understanding of d/c and follow up instructions. Denies questions or concerns Ambulated out of ED with steady gait. 19:44 19:25 Discharged to home ambulatory, [facility]
[2019-10-05 19:31] VITALS: TEMP 97.6
[2019-10-05 19:33] VITALS: BP 148/63; O2SAT 100
== END 2019-10-05 19:26 | disposition home or self-care (01) ==
LOC: ER 17:09
DX: M54.31 Sciatica, right side (principal); Z88.2 Allergy status to sulfonamides; Z88.6 Allergy status to analgesic agent; Z88.8 Allergy status to other drugs, medicaments and biological substances; Z91.013 Allergy to seafood; Z91.018 Allergy to other foods
CPT/HCPCS: 96372; 99283

== ENCOUNTER 2019-10-30 16:33 | Emergency (ER) | payer OTHER ==
--- OUTSIDE RECORDS SUMMARY | 2019-10-30 16:35 | XMS REPORT | Continuity of Care Document ---
:1960 Author Organization [facility] t Address [address] [place] [address] Care Team Providers Name Role Phone Tech, Sleep Lab Attending Clinician Unavailable Only, Test Attending Clinician Unavailable Problems Condition Condition Condition Status Onset Resolution Last Treating Co mments Source Name Details Category Date Date Treatment Clinician Date Sciatica Sci[facility]a Problem [facility] Clin[facility] Sciatica, Sciatica, Problem Active [facility] side Lilibeth kes - [facility] Right hip Right hip Diagnosis Active [facility] pain pain [facility] Left hip Left hip Diagnosis Active [facility] Allergies, Adverse Reactions, Alerts Allergy Allergy Status Severity Reaction(s) Onset Inactive Treating Comm ents Source Name Type Date Date Clinician Lyrica Adverse Active Info Not [facility] Reaction Available [facility] Gabapent Adverse Active Info Not [facility] Available [facility] Medications Ordered Filled Start Stop Current Ordering Indication Dosage Frequency Signature Comments Components Source Medication Medication Date Date Medication? Clinician (SIG) Name Name Livalo Livalo Yes Ryan not [facility] Armodafinil Armodafinil Yes Ryan (Schedule [facility] IV Drug) [facility] Fluoxetine Fluoxetine Yes Ryan not [facility] HCl HCl Cole defined [facility] Eszopiclone Eszopiclone Yes Ryan (Schedule [facility] IV Drug) [facility] Levothyroxi Levothyroxi Yes Ryan not [facility] ne Sodium ne Sodium Cole defined [facility] - [facility] ent Clinics Dexilant Dexilant Yes Ryan not [facility] defined [facility] Procedures This patient has no known procedures. Encounters Start End Encounter Admission Attending Care Care Encounter Source Date/Time Date/Time Type Type Clinicians Facility Department ID 2019-09-13 2019-09-13 Diesel Service Journeyman Tech, [facility] [id number] 13:40:37 13:55:37 Visit Sleep Lab [place] [id number] [place] [id number] [place] [id number] 2019-09-11 2019-09-11 Laboratory Only, [facility] [id number] 13:42:02 13:53:01 Only Test [place] [id number] [place] [id number] [place] [id number] 2018-06-01 2018-06-01 [facility] [id number] 14:30:00 14:30:00 t Bone Bone and [facility] Results This patient has no known results.
[2019-10-30] MEDS ORDERED: KETOROLAC 30 MG/ML INJ ONE (17:21)
[2019-10-30] MEDS ORDERED: HYDROCODONE/APAP 10/325 TAB ONE (17:21)
[2019-10-30] MEDS ORDERED: LIDOCAINE 4% PATCH ONE (17:27)
--- NOTE | 2019-10-30 18:02 | RAD REPORT ---
EXAM DESCRIPTION: RAD - Hip Right 2 View - 10/30/2019 5:50 pm CLINICAL HISTORY: PAIN COMPARISON: Hip Right 2 View dated 01/17/2013 FINDINGS: No fracture, dislocation or AVN.
--- NOTE | 2019-10-30 18:18 | ER ---
Nurse's Notes [facility] Name: Amy Padilla Age: 59 yrs Sex: Female : 1960 Arrival Date: 10/30/2019 Time: 16:37 Bed 20 Private MD: Diagnosis: Sciatica, right side Presentation: 10/29 16:51 Chief complaint: Patient states: right low back radiating to right hip that began 1 aa5 week ago, pt reports she was seen here for same complaint. Denies urinary symptoms. Coronavirus screen: Client denies travel out of the [place] in the last 14 days. At this time, the client does not indicate any symptoms associated with coronavirus-19. Ebola Screen: Patient negative for fever greater than or equal to 101.5 degrees Fahrenheit, and additional compatible Ebola Virus Disease symptoms. Initial Sepsis Screen: Does the patient meet any 2 criteria? No. Patient's initial sepsis screen is negative. Does the patient have a suspected source of infection? No. Patient's initial sepsis screen is negative. Risk Assessment: Do you want to hurt yourself or someone else? Patient reports no desire to harm self or others. Onset of symptoms was 2020. 16:51 Method Of Arrival: Wheelchair aa5 16:51 Acuity: KANDIS 3 aa5 Triage Assessment: 18:45 General: Appears in no apparent distress. Behavior is calm, cooperative. iw Historical: - Allergies: 16:53 Flonase; aa5 16:53 subha; aa5 16:53 Mobic; aa5 16:53 Neurontin; aa5 16:53 sea food; aa5 16:53 Sulfa (Sulfonamide Antibiotics); aa5 - PMHx: 16:53 Anxiety; Depression; Fibromyalgia; Hypothyroidism; aa5 - PSHx: 16:53 Appendectomy; Tonsillectomy; Hysterectomy; Carpal Tunnel Repair; laproscopic adhesion aa5 surgery; Disc surgery; - Immunization history:: Adult Immunizations unknown. - Social history:: Smoking status: Patient denies any tobacco usage or history of. Screenin:00 Abuse screen: Denies threats or abuse. Denies injuries from another. Nutritional iw screening: No deficits noted. Tuberculosis screening: No symptoms or risk factors identified. Fall Risk None identified. Assessment: 18:00 General: Appears in no apparent distress. Pain: Complains of pain in right hip. Pain: iw Complains of pain in right lower back Pain currently is 9 out of 10 on a pain scale. Neuro: Level of Consciousness is awake, alert, obeys commands, Oriented to person, place, time, situation, Moves all extremities. Full function. Cardiovascular: Patient's skin is warm and dry. Respiratory: Respiratory effort is even, unlabored, Respiratory pattern is regular, symmetrical. Derm: Skin is intact, is healthy with good turgor. Musculoskeletal: Range of motion: intact in all extremities, Reports pain in right lower back. Vital Signs: 16:51 BP 129 / 87; Pulse 87; Resp 16 S; Temp 99.6(O); Pulse Ox 96% on R/A; Weight 81.65 kg aa5 (R); Height 5 ft. 3 in. (160.02 cm) (R); Pain 10/10; 16:51 Body Mass Index 31.89 (81.65 kg, 160.02 cm) aa5 ED Course: 16:37 Patient arrived in ED. mr 16:51 Arm band placed on. aa5 16:52 Triage completed. aa5 16:55 Rebel Mccormick, LUDA is PHCP. pm1 16:55 Jorge Causey MD is Attending Physician. pm1 17:00 Patient has correct armband on for positive identification. iw 17:17 Alejandrina Rhodes, RN is Primary Nurse. iw 17:50 Hip Right 2 View XRAY In Process Unspecified. EDMS 18:48 No provider procedures requiring assistance completed. Patient did not have IV access iw during this emergency room visit. Administered Medications: 17:25 Drug: Lidoderm 5 % (700 mg/patch) 1 patches Route: Topical; Site: affected area; iw 17:25 Drug: [place] 10 mg-325 mg 1 tabs Route: PO; iw 17:26 Drug: TORadol 30 mg Route: IM; Site: left ventrogluteal; iw Outcome: 18:17 Discharge ordered by . pm1 18:48 Discharged to home via wheelchair, with family. iw 18:48 Condition: good 18:48 Discharge instructions given to patient, Instructed on discharge instructions, follow up and referral plans. medication usage, Demonstrated understanding of instructions, follow-up care, medications, Prescriptions given X 2. 18:49 Patient left the ED. iw Signatures: Dispatcher [employer] [facility] Denise mr Alejandrina Rhodes, RN RN iw Vika Guerra, RN RN aa5 Rebel Mccormick, OXYACETYLENE WELDER OXYACETYLENE WELDER pm1
--- NOTE | 2019-10-30 18:18 | EDPHYS ---
Physician Documentation [facility] Name: Amy Padilla Age: 59 yrs Sex: Female : 1960 Arrival Date: 10/30/2019 Time: 16:37 Bed 20 Private MD: ED Physician Jorge Causey HPI: 10/29 17:04 This 59 yrs old Female presents to ER via Wheelchair with complaints of Hip pm1 Pain. 17:04 The patient or guardian reports pain. that occurred at home, sustained from stretching pm1 The patient is able to bear partial body weight. The patient's discomfort radiates to the right hamstring. The complaints affect the right gluteus lobito. Onset: The symptoms/episode began/occurred 2 day(s) ago. Modifying factors: The symptoms are alleviated by remaining still, the symptoms are aggravated by weight bearing. Associated signs and symptoms: Pertinent negatives: fever. Severity of symptoms: in the emergency department the symptoms are unchanged. The patient has experienced similar episodes in the past, a few times. The patient has been recently seen by a physician: the patient's primary care provider, with similar presenting complaints, and apparently given a diagnosis of lumbago with sciatica and given referral to Erwin Jain. Historical: - Allergies: 16:53 Flonase; aa5 16:53 subha; aa5 16:53 Mobic; aa5 16:53 Neurontin; aa5 16:53 sea food; aa5 16:53 Sulfa (Sulfonamide Antibiotics); aa5 - PMHx: 16:53 Anxiety; Depression; Fibromyalgia; Hypothyroidism; aa5 - PSHx: 16:53 Appendectomy; Tonsillectomy; Hysterectomy; Carpal Tunnel Repair; laproscopic adhesion aa5 surgery; Disc surgery; - Immunization history:: Adult Immunizations unknown. - Social history:: Smoking status: Patient denies any tobacco usage or history of. ROS: 17:04 Constitutional: Negative for fever, chills, and weight loss, Cardiovascular: Negative pm1 for chest pain, palpitations, and edema, Respiratory: Negative for shortness of breath, cough, wheezing, and pleuritic chest pain, Abdomen/GI: Negative for abdominal pain, nausea, vomiting, diarrhea, and constipation, Back: Negative for injury and pain. 17:04 Skin: Negative for injury, rash, and discoloration, Neuro: Negative for headache, weakness, numbness, tingling, and seizure. 17:04 MS/extremity: Positive for pain, of the right gluteus lobito and right hamstring, Negative for decreased range of motion, deformity. Exam: 17:04 Constitutional: This is a well developed, well nourished patient who is awake, alert, pm1 and in no acute distress. Head/Face: Normocephalic, atraumatic. Chest/axilla: Normal chest wall appearance and motion. Nontender with no deformity. No lesions are appreciated. 17:04 Cardiovascular: Exam negative for acute changes, Rate: normal, Rhythm: regular, Pulses: no pulse deficits are appreciated, Edema: is not appreciated. 17:04 Respiratory: Exam negative for acute changes, respiratory distress, shortness of breath. 17:04 Abdomen/GI: Exam negative for acute changes, Inspection: abdomen appears normal, Bowel sounds: normal, Palpation: abdomen is soft and non-tender. 17:04 Back: Exam negative for acute changes, pain, is absent, normal spinal alignment noted. 17:04 Musculoskeletal/extremity: Extremities: grossly normal except: noted in the right gluteus lobito: tenderness, There is no evidence of decreased ROM, deformity. Vital Signs: 16:51 BP 129 / 87; Pulse 87; Resp 16 S; Temp 99.6(O); Pulse Ox 96% on R/A; Weight 81.65 kg aa5 (R); Height 5 ft. 3 in. (160.02 cm) (R); Pain 10/10; 16:51 Body Mass Index 31.89 (81.65 kg, 160.02 cm) aa5 MDM: 16:55 Patient medically screened. pm1 17:04 ED course: Patient requested imaging of her right hip. Denies any trauma but she was pm1 concerned that a prior hip imaging in 2019 mentioned the presence of a spur. She believes that it maybe causing her current pain. 18:17 Data reviewed: vital signs. Data interpreted: Pulse oximetry: on room air is 96 %. pm1 Interpretation: normal. Counseling: I had a detailed discussion with the patient and/or guardian regarding: the historical points, exam findings, and any diagnostic results supporting the discharge/admit diagnosis, radiology results, the need for outpatient follow up, for definitive care, a neurologist, a neurosurgeon, a orthopedic surgeon, to return to the emergency department if symptoms worsen or persist or if there are any questions or concerns that arise at home. 10/29 17:04 Order name: Hip Right 2 View XRAY; Complete Time: 18:06 pm1 Administered Medications: 17:25 Drug: Lidoderm 5 % (700 mg/patch) 1 patches Route: Topical; Site: affected area; iw 17:25 Drug: [place] 10 mg-325 mg 1 tabs Route: PO; iw 17:26 Drug: TORadol 30 mg Route: IM; Site: left ventrogluteal; iw Disposition: 18:59 Co-signature as Attending Physician, Jorge Causey MD. rn Disposition: 10/30/19 18:17 Discharged to Home. Impression: Sciatica, right side. - Condition is Stable. - Discharge Instructions: Sciatica. - Prescriptions for Tylenol- Codeine #3 300-30 mg Oral Tablet - take 2 tablets by ORAL route every 6 hours As needed; 20 tablet. Prednisone 20 mg Oral Tablet - take 2 tablet by ORAL route once daily for 5 days; 10 tablet. - Medication Reconciliation Form, Thank You Letter, Antibiotic Education, Prescription Opioid Use form. - Follow up: Emergency Department; When: As needed; Reason: Worsening of condition. Follow up: Private Physician; When: 2 - 3 days; Reason: Recheck today's complaints, Continuance of care, Re-evaluation by your physician. - Problem is new. - Symptoms have improved. Signatures: Dispatcher [employer] Alejandrina Santos RN RN Jorge Causey MD MD rn Calderon, Audri, RN RN aa5 Rebel Mccormick NP GENERAL EDUCATION PROFESSOR pm1 Corrections: (The following items were deleted from the chart) 18:49 18:17 10/30/2019 18:17 Discharged to Home. Impression: Sciatica, right side. Condition iw is Stable. Forms are Medication Reconciliation Form, Thank You Letter, Antibiotic Education, Prescription Opioid Use. Follow up: Emergency Department; When: As needed; Reason: Worsening of condition. Follow up: Private Physician; When: 2 - 3 days; Reason: Recheck today's complaints, Continuance of care, Re-evaluation by your physician. Problem is new. Symptoms have improved. pm1
[2019-11-01 21:20] VITALS: BP 129/87; TEMP 99.6; O2SAT 96
== END 2019-10-30 18:49 | disposition home or self-care (01) ==
LOC: ER 16:33
DX: M54.41 Lumbago with sciatica, right side (principal); Z91.018 Allergy to other foods; Z91.013 Allergy to seafood; Z88.2 Allergy status to sulfonamides
CPT/HCPCS: 96372; 99283

== ENCOUNTER 2019-11-05 14:32 | Emergency (ER) | payer OTHER ==
--- OUTSIDE RECORDS SUMMARY | 2019-11-05 14:34 | XMS REPORT | Continuity of Care Document ---
:1960 Author Organization [facility] t Address [address] [place] [address] Care Team Providers Name Role Phone Doctor Unassigned, Name Attending Clinician Unavailable Tech, Sleep Lab Attending Clinician Unavailable Only, Test Attending Clinician Unavailable Problems Condition Condition Condition Status Onset Resolution Last Treating Co mments Source Name Details Category Date Date Treatment Clinician Date Sciatica Sciatica Problem [facility] Sciatica, Sciatica, Problem Active [facility] right [facility] right side L[facility] k[facility] - [facility] Right hip Right hip Diagnosis Active [facility] pain [facility] Left hip Left hip Diagnosis Active [facility] Allergies, Adverse Reactions, Alerts Allergy Allergy Status Severity Reaction(s) Onset Inactive Treating Comm ents Source Name Type Date Date Clinician Lyrica Adverse Active Info Not [facility] Reaction Available [facility] Clinics Gabapent Adverse Active Info Not [facility] Reaction Available [facility] Medications Ordered Filled Start Stop Current Ordering Indication Dosage Frequency Signature Comments Components Source Medication Medication Date Date Medication? Clinician (SIG) Name Name Livalo Livalo Yes Ryan not [facility] Armodafinil Armodafinil Yes Ryan (Schedule [facility] IV Drug) [facility] Fluoxetine Fluoxetine Yes Ryan not [facility] HCl HCl [facility] defined [facility] Eszopiclone Eszopiclone Yes Ryan (Schedule [facility] IV Drug) [facility] Levothyroxi Levothyroxi Yes Ryan not [facility] ne Sodium ne Sodium Cole defined [facility] Clinics Dexilant Dexilant Yes Ryan not [facility] defined [facility] Procedures This patient has no known procedures. Encounters Start End Encounter Admission Attending Care Care Encounter Source Date/Time Date/Time Type Type Clinicians Facility Department ID 2019-10-30 2019-10-30 Orders Doctor JORDIN [id number] 00:00:00 00:00:00 Only Unassigned, EMERALD [id number] [place] [id number] 2019-09-13 2019-09-13 Centrifuge Operator Tech, [facility] [id number] 13:40:37 13:55:37 Visit Sleep Lab [place] [id number] [place] [id number] [place] [id number] 2019-09-11 2019-09-11 Laboratory Only, [facility] [id number] 13:42:02 13:53:01 Only Test [place] [id number] [place] [id number] [place] [id number] 2018-06-01 2018-06-01 [facility] [id number] 14:30:00 14:30:00 t Bone Bone and [facility] Results This patient has no known results.
--- OUTSIDE RECORDS SUMMARY | 2019-11-05 14:35 | XMS REPORT | Summary of Care ---
:1960 Author Organization [facility] - Health Address [address] [place] [address] Care Team Providers Name Role Phone Alirio Gibson Primary Care Provider Encounter Details Date Type Department Care Team Description 10/30/2019 Orders Only [facility] Doctor Unassigned, [address] [facility] [place] [address] [address] [place] [address] Allergies Active Allergy Reactions Severity Noted Date Comments Fluticasone Propionate Palpitations 05/16/2018 Lemon Anaphylaxis 08/26/2014 Closes throat Meloxicam Shortness of Breath 03/01/2014 Gabapentin Shortness of Breath 08/23/2012 Seafood/Fish Other - See comments 10/24/2012 Rash, t hroat closes Iodine And Iodide Other - See comments 10/24/2012 Ra sh, throat Containing Products closes Sulfamethoxazole Anaphylaxis 04/30/2013 Bactrim documented as of this encounter (statuses as of 10/31/2019) Medications Medication Sig Dispensed Refills Start Date [...] as of this encounter (statuses as of 10/31/2019) Active Problems Problem Noted Date Abnormal SPEP 2018 Overview: Possible hypogammaglobulinemia, further lab tests ordered. GERD (gastroesophageal reflux disease) 05/17/2018 Sigmoid diverticulosis 02/15/2017 Prediabetes 12/01/2016 Hypercholesterolemia 12/01/2016 Fatty liver 11/25/2016 Microscopic hematuria 11/24/2016 Trigger finger of right hand 09/03/2014 Ganglion cyst 09/03/2014 Overweight 05/06/2013 Overview: ICD10 Diagnosis Term Rnp Utility Cervical spondylosis without myelopathy 09/06/2012 Other seborrheic keratosis 05/08/2012 Fibromyalgia syndrome Carpal tunnel syndrome Sleep apnea Endometriosis Depression Anxiety Chronic fatigue Hypothyroidism Peripheral neuropathy Trochanteric bursitis documented as of this encounter (statuses as of 10/31/2019) Social History Tobacco Use Types Packs/Day Years Used Date Former Smoker Cigarettes 1 36 Quit: 02/03/20 17 Smokeless Tobacco: Never Used Comments: vaping Alcohol Use Drinks/Week oz/Week Comments No Sex Assigned at Date Recorded Not on file documented as of this encounter Last Filed Vital Signs Not on filedocumented in this encounter Plan of Treatment Health Maintenance Due Date Last Done Comments Depression Screening 1974 DTaP,Tdap,and Td Vaccines (1 - 1981 Tdap) COLON CANCER SCREENING ANNUAL 2012 FIT/FOBT COLON CANCER SCREENING FIT DNA 2012 EVERY 3 YEARS COLON CANCER SCREENING 2012 SIGMOIDOSCOPY EVERY 5 YEARS COLONOSCOPY 2012 Colorectal Cancer Screening 2012 Zoster Recombinant Vaccine 2012 (SHINGRIX) (1 [...] Name Priority Date/Time Associated Diagnosis Comme nts REFERRAL- Routine 10/30/2019 12:01 AM CDT REQUEST/RESPONSE documented in this encounter Results Not on filedocumented in this encounter Insurance Payer Benefit Plan / Subscriber ID Effective Dates Phone Addre ss Type Group [facility] [id number] 2013-Present Medicaid COMM PLAN - PLUS MANAGED MEDICAID documented as of this encounter Advance Directives Type Date Recorded Patient Wine Merchant Explanati on Advance Directives and Living 11/13/2012 8:09 AM Will Power of Plate Corrector 11/13/2012 8:09 AM
[2019-11-05] MEDS ORDERED: CYCLOBENZAPRINE 10 MG TAB ONE (15:45)
[2019-11-05] MEDS ORDERED: LIDOCAINE 4% PATCH ONE (15:46)
[2019-11-05] MEDS ORDERED: HYDROCODONE/APAP 10/325 TAB ONE (15:46)
--- NOTE | 2019-11-05 16:24 | ER ---
Nurse's Notes [facility] Name: Amy Padilla Age: 59 yrs Sex: Female : 1960 Arrival Date: 11/05/2019 Time: 14:34 Bed 2 Private MD: Diagnosis: Sciatica, right side Presentation: 11/04 14:40 Chief complaint: Patient states: Right lower back pain that radiates down right leg for ll1 over 1 month, 3rd visit here in the past week. Medications prescribed haven't helped, prednisone and tylenol #3. Coronavirus screen: Client denies travel out of the [place] in the last 14 days. At this time, the client does not indicate any symptoms associated with coronavirus-19. Ebola Screen: Patient denies travel to an Ebola-affected area in the 21 days before illness onset. Initial Sepsis Screen: Does the patient meet any 2 criteria? No. Patient's initial sepsis screen is negative. Risk Assessment: Do you want to hurt yourself or someone else? Patient reports no desire to harm self or others. Onset of symptoms was October 05, 2019. 14:40 Method Of Arrival: Wheelchair ll1 14:40 Acuity: KANDIS 3 ll1 15:46 Initial Sepsis Screen: Does the patient have a suspected source of infection? No. sv Patient's initial sepsis screen is negative. Historical: - Allergies: 14:43 Flonase; ll1 14:43 subha; ll1 14:43 Mobic; ll1 14:43 Neurontin; ll1 14:43 sea food; ll1 14:43 Sulfa (Sulfonamide Antibiotics); ll1 - PMHx: 14:43 Anxiety; Depression; Fibromyalgia; Hypothyroidism; ll1 - PSHx: 14:43 Appendectomy; Tonsillectomy; Hysterectomy; Carpal Tunnel Repair; laproscopic adhesion ll1 surgery; Disc surgery; - Immunization history:: Flu vaccine is not up to date. - Social history:: Smoking status: Reported history of juuling and/or vaping. Patient/guardian denies using tobacco, the patient reports quitting approximately 3 years ago, Patient/guardian denies using alcohol, street drugs. Screenin:45 Abuse screen: Denies threats or abuse. Denies injuries from another. Nutritional sv screening: No deficits noted. Tuberculosis screening: No symptoms or risk factors identified. Fall Risk None identified. Assessment: 15:45 General: Appears in no apparent distress. uncomfortable, well developed, Behavior is sv calm, cooperative, appropriate for age. Pain: Complains of pain in right low back Pain radiates to right leg Pain currently is 10 out of 10 on a pain scale. Pain began weeks ago Is continuous, Aggravated by increased activity, repositioning. Neuro: Level of Consciousness is awake, alert, obeys commands, Oriented to person, place, time, situation, Moves all extremities. Full function. Respiratory: Airway is patent Respiratory effort is even, unlabored, Respiratory pattern is regular, symmetrical. 15:45 Derm: Skin is intact, Skin is pink, warm \T\ dry. sv 16:43 Reassessment: Patient appears in no apparent distress at this time. Patient and/or sv family updated on plan of care and expected duration. Pain level reassessed. Patient is alert, oriented x 3, equal unlabored respirations, skin warm/dry/pink. Vital Signs: 14:40 BP 133 / 93; Pulse 86; Resp 18; Temp 98.5; Pulse Ox 97% ; Pain 10/10; ll1 15:47 BP 137 / 72; Pulse 71; Resp 18; Pulse Ox 96% ; sv 16:15 BP 130 / 77; Pulse 74; Resp 16; Pulse Ox 96% ; sv ED Course: 14:34 Patient arrived in ED. mr 14:42 Triage completed. ll1 14:43 Arm band placed on. ll1 15:04 Juanis Godoy RN is Primary Nurse. sv 15:09 Rebel Mccormick NP is PHCP. pm1 15:09 Berlin Perkins MD is Attending Physician. pm1 15:45 Patient has correct armband on for positive identification. Bed in low position. Call sv light in reach. Side rails up X2. Pulse ox on. NIBP on. 16:43 No provider procedures requiring assistance completed. Patient did not have IV access sv during this emergency room visit. Administered Medications: 15:46 Drug: Flexeril 10 mg Route: PO; sv 16:47 Follow up: Response: No adverse reaction sv 15:46 Drug: Sells 10 mg-325 mg 1 tabs {Note: rass2.} Route: PO; sv 16:47 Follow up: Response: No adverse reaction; Pain is decreased; RASS: Alert and Calm (0) 15:47 Drug: Lidoderm 5 % (700 mg/patch) 1 patches {Note: 4% patch is here [place] by shakira Luque NP.} Route: Topical; Site: right thigh; Outcome: 16:23 Discharge ordered by . pm1 16:44 Discharged to home via wheelchair, with her own wheelchair 16:44 Condition: stable 16:44 Discharge instructions given to patient, Pt calling for her ride home right now Instructed on discharge instructions, follow up and referral plans. medication usage, Demonstrated understanding of instructions, follow-up care, medications, Prescriptions given X 2. 17:10 Patient left the ED. [email or web address] Signatures: Juanis Godoy, RN Denise Orta Patrick, NP PSYCHOTHERAPIST SOCIAL WORKER pm1 Mattie Nieto RN RN 1 Donna Moat RN RN [email or web address]
--- NOTE | 2019-11-05 16:24 | EDPHYS ---
Physician Documentation [facility] Name: Amy Padilla Age: 59 yrs Sex: Female : 1960 Arrival Date: 11/05/2019 Time: 14:34 Bed 2 Private MD: ED Physician Berlin Perkins HPI: 11/04 15:36 This 59 yrs old Female presents to ER via Wheelchair with complaints of Hip pm1 Pain, Leg Pain. 15:36 The patient or guardian reports pain. The complaints affect the right gluteus lobito pm1 with radiation down right leg. Onset: The symptoms/episode began/occurred 1 month(s) ago. Modifying factors: The symptoms are alleviated by nothing, Tylenol #3 made her itchy. She wants the Flexeril prescription again because it helped her get some relief in that it allowed her to sleep, the symptoms are aggravated by weight bearing. Associated signs and symptoms: Pertinent negatives: abdominal pain, dysuria, fever, incontinence, weakness. Severity of symptoms: in the emergency department the symptoms are unchanged. PCPArthur has given the patient a referral to neurosurgery for evaluation and treatment. Historical: - Allergies: 14:43 Flonase; ll1 14:43 subha; ll1 14:43 Mobic; ll1 14:43 Neurontin; ll1 14:43 sea food; ll1 14:43 Sulfa (Sulfonamide Antibiotics); ll1 - PMHx: 14:43 Anxiety; Depression; Fibromyalgia; Hypothyroidism; ll1 - PSHx: 14:43 Appendectomy; Tonsillectomy; Hysterectomy; Carpal Tunnel Repair; laproscopic adhesion ll1 surgery; Disc surgery; - Immunization history:: Flu vaccine is not up to date. - Social history:: Smoking status: Reported history of juuling and/or vaping. Patient/guardian denies using tobacco, the patient reports quitting approximately 3 years ago, Patient/guardian denies using alcohol, street drugs. ROS: 15:36 Constitutional: Negative for fever, chills, and weight loss, Cardiovascular: Negative pm1 for chest pain, palpitations, and edema, Respiratory: Negative for shortness of breath, cough, wheezing, and pleuritic chest pain, Abdomen/GI: Negative for abdominal pain, nausea, vomiting, diarrhea, and constipation. 15:36 Back: Negative for injury and pain. 15:36 Skin: Negative for injury, rash, and discoloration, Neuro: Negative for headache, weakness, numbness, tingling, and seizure. 15:36 MS/extremity: Positive for pain, of the right gluteus lobito, Negative for decreased range of motion, deformity, trauma. Exam: 15:36 Constitutional: This is a well developed, well nourished patient who is awake, alert, pm1 and in no acute distress. Head/Face: Normocephalic, atraumatic. 15:36 Back: No spinal tenderness. No costovertebral tenderness. Full range of motion. Skin: Warm, dry with normal turgor. Normal color with no rashes, no lesions, and no evidence of cellulitis. 15:36 Cardiovascular: Exam negative for acute changes, Rate: normal, Rhythm: regular, Pulses: no pulse deficits are appreciated. 15:36 Respiratory: Exam negative for acute changes, respiratory distress, shortness of breath. 15:36 Musculoskeletal/extremity: Extremities: grossly normal except: noted in the right gluteus lobito: tenderness, There is no evidence of decreased ROM, deformity. 15:36 Neuro: Exam negative for acute changes, Orientation: is normal, Mentation: is normal, Motor: is normal, moves all fours, Sensation: is normal, no obvious gross deficits. Vital Signs: 14:40 BP 133 / 93; Pulse 86; Resp 18; Temp 98.5; Pulse Ox 97% ; Pain 10/10; ll1 15:47 BP 137 / 72; Pulse 71; Resp 18; Pulse Ox 96% ; sv 16:15 BP 130 / 77; Pulse 74; Resp 16; Pulse Ox 96% ; sv MDM: 15:23 Patient medically screened. pm1 15:30 Data reviewed: vital signs. Data interpreted: Pulse oximetry: on room air is 97 %. pm1 Interpretation: normal. 16:23 Counseling: I had a detailed discussion with the patient and/or guardian regarding: the pm1 historical points, exam findings, and any diagnostic results supporting the discharge/admit diagnosis, the need for outpatient follow up, to return to the emergency department if symptoms worsen or persist or if there are any questions or concerns that arise at home. 16:37 ED course: GOLF RANGE ATTENDANT Aware reviewed. pm1 Administered Medications: 15:46 Drug: Flexeril 10 mg Route: PO; 16:47 Follow up: Response: No adverse reaction sv 15:46 Drug: Oakley 10 mg-325 mg 1 tabs {Note: rass2.} Route: PO; sv 16:47 Follow up: Response: No adverse reaction; Pain is decreased; RASS: Alert and Calm (0) sv 15:47 Drug: Lidoderm 5 % (700 mg/patch) 1 patches {Note: 4% patch is [place] by shakira Luque RELATIONS LIAISON.} Route: Topical; Site: right thigh; Disposition: 11/05/19 16:23 Discharged to Home. Impression: Sciatica, right side. - Condition is Stable. - Discharge Instructions: Sciatica. - Prescriptions for Cyclobenzaprine 10 mg Oral Tablet - take 1 tablet by ORAL route every 8 hours As needed; 30 tablet. Lidoderm 5 % Topical adhesive patch,medicated - apply 1 patch by TRANSDERMAL route once daily As needed Apply for 1 patch for 12 hours then 12 hours off; 30 Transdermal Patch. - Medication Reconciliation Form, Thank You Letter, Antibiotic Education, Prescription Opioid Use form. - Follow up: Emergency Department; When: As needed; Reason: Worsening of condition. Follow up: Private Physician; When: 2 - 3 days; Reason: Recheck today's complaints, Continuance of care, Re-evaluation by your physician. - Problem is new. - Symptoms have improved. Signatures: Juanis Godoy, RN ELTON Rebel Mccormick, LUDA RELATIONS LIAISON pm1 Mattie Nieto RN RN ll1 Donna Mota, RN RN [email or web address] Corrections: (The following items were deleted from the chart) 16:24 16:23 11/05/2019 16:23 Discharged to Home. Impression: Lumbago with sciatica. Condition pm1 is Stable. Forms are Medication Reconciliation Form, Thank You Letter, Antibiotic Education, Prescription Opioid Use. Follow up: Emergency Department; When: As needed; Reason: Worsening of condition. Follow up: Private Physician; When: 2 - 3 days; Reason: Recheck today's complaints, Continuance of care, Re-evaluation by your physician. Problem is new. Symptoms have improved. pm1 17:10 16:24 11/05/2019 16:23 Discharged to Home. Impression: Sciatica, right side. Condition jr10 is Stable. Discharge Instructions: Back Pain, Adult. Prescriptions for Cyclobenzaprine 10 mg Oral Tablet - take 1 tablet by ORAL route every 8 hours As needed; 30 tablet. and Forms are Medication Reconciliation Form, Thank You Letter, Antibiotic Education, Prescription Opioid Use. Follow up: Emergency Department; When: As needed; Reason: Worsening of condition. Follow up: Private Physician; When: 2 - 3 days; Reason: Recheck today's complaints, Continuance of care, Re-evaluation by your physician. Problem is new. Symptoms have improved. pm1
[2019-11-06 04:49] VITALS: TEMP 98.5
[2019-11-06 04:50] VITALS: O2SAT 96
[2019-11-06 04:51] VITALS: BP 130/77
== END 2019-11-05 17:10 | disposition home or self-care (01) ==
LOC: ER 14:32
DX: M54.31 Sciatica, right side (principal); Z88.1 Allergy status to other antibiotic agents; Z88.2 Allergy status to sulfonamides; Z88.8 Allergy status to other drugs, medicaments and biological substances; Z91.013 Allergy to seafood; Z91.018 Allergy to other foods; Z87.891 Personal history of nicotine dependence
CPT/HCPCS: 99283